=== PATIENT | male | born 1985 | race Two or more races ===

== ENCOUNTER 2024-12-12 21:53 | Emergency (ER) | payer MEDICAID ==
[~2024-12-12] VITALS: Ht 172.7 cm; Wt 127.0 kg
[2024-12-12 21:57] VITALS: BP 203/118; PULSE 100; RESP 18; TEMP 36.8; O2SAT 94
[2024-12-13] MEDS: LIDOCAINE HCL/PF 1% 10 MG/ML 5ML VIAL INFIL ONE (00:35)
[2024-12-13] MEDS: BACITRACIN ZINC OINT UDPKT TOP ONE (00:35)
== END 2024-12-13 00:42 | disposition home or self-care (01) ==
LOC: ER 21:53
DX: I83.91 Asymptomatic varicose veins of right lower extremity (principal)
CPT/HCPCS: 99283